=== PATIENT | female | born 2000 | race Hispanic/Latino ===

== ENCOUNTER 2021-10-20 11:11 | Emergency (ER) | payer OTHER, SELFPAY ==
--- NOTE | ~2021-10-20 | XR_ITS ---
XR forearm LT 2V 10/20/2021 11:50 INDICATION: Left arm pain PROCEDURE: 2 views left forearm COMPARISON: No prior studies for comparison. FINDINGS: Fracture, dislocation or subluxation is not identified. There is soft tissue swelling along the dorsal aspect of the forearm. No foreign bodies are identified. IMPRESSION: 1: NO ACUTE BONE OR JOINT ABNORMALITY IDENTIFIED. Reviewed, dictated and finalized at location L.
[2021-10-20 11:21] VITALS: BP 134/80; PULSE 77; RESP 16; TEMP 37.4; O2SAT 100
--- NOTE | 2021-10-20 11:36 | ED.EXTPRO ---
HPI - Extremity Problem General Chief complaint: Extremity Problem,Nontraumatic Stated complaint: left arm pain/swelling Time Seen by Provider: 10/20/21 11:36 Source: patient and RN notes reviewed Mode of arrival: ambulatory Limitations: no limitations History of Present Illness HPI Narrative: 21-year-old female presents to the [facility] with complaints of redness, swelling and bruising with discomfort to the left forearm since Monday, 4 days. Full range of motion of the elbow and wrist. Strong pc support specialist noted. Capillary refill under 2 seconds. Sensation intact in all 5 fingers. No open wounds. Related Data Allergies Allergy/AdvReac Type Severity Reaction Status Date / Time No Known Allergies Allergy Unverified 10/20/21 11:16 Review of Systems Review of Systems: All systems reviewed & are unremarkable except as noted in HPI and below Constitutional: Constitutional: Reports no additional constitutional complaints, Denies chills and Denies fever(s) Eyes: Eyes: Reports no additional eye complaints ENT: Reports system reviewed and no additional complaints, except as documented Cardiovascular: Cardiovascular: Reports no additional cardiovascular complaints Respiratory: Respiratory: Reports no additional respiratory complaints Gastrointestinal: Gastrointestinal: Reports no additional gastrointestinal complaints Musculoskeletal: Musculoskeletal: Reports as per HPI Integumentary/Breasts: Skin/Breast: Reports as per HPI Neurologic: Reports system reviewed and no additional complaints, except as documented Psychiatric: Psychiatric: Reports no additional psychiatric complaints Allergic/Immunologic: Allergic/Immunologic: Reports no additional allergic/immunologic complaints PMFSH Past Medical History Medical History (Updated 10/21/21 @ 08:22 by Renu Ramirez APRN) Patient denies medical problems Surgical History Surgical History (Updated 10/21/21 @ 08:21 by Renu Ramirez APRN) No pertinent past surgical history Social History Social History (Updated 10/21/21 @ 08:21 by Renu Ramirez APRN) Gender identity (if verbalized by the patient): Female Comments At the time of my signature, I reviewed and agree with the nursing past medical, surgical, social, and family history. There is no relevant family history pertinent to the patient complaint. Exam Const: General: healthy appearing, no acute distress and alert Nutritional Appearance: well nourished Orientation/consciousness: patient oriented x3 Limitations: no limitations HENMT: Head: normal to inspection Ears: external ears normal Eyes: General: appearance normal, both eyes and all related structures Pupils: Equal, round and reactive pupils present Neck: Neck: normal visual inspection, no lymphadenopathy and no meningeal signs Chest: Chest palpation & inspection: normal inspection of the chest Resp: Effort & Inspection: normal respiratory effort and no use of accessory muscles Auscultation: clear to auscultation bilaterally, no crackles, no rales, no rhonchi and no wheezes Cardio: Rate: regular rate Rhythm: regular rhythm GI: GI Palp: Yes Soft to palpation and No Tenderness to palpation present (GI) Back/Spine/Pelvis: Cervical Spine: normal cervical lordosis Thoracic/Lumbar Spine: thoracic and lumbar spine normal to inspection Skin: General skin exam: normal color Rashes: no rashes Wounds: no wounds Neuro: General: patient oriented x3, moves all extremities, no meningeal signs and no focal motor deficits Cranial nerves: Yes Equal, round and reactive pupils present Speech: normal speech Gait exam (Neuro): Normal gait present Extrem: General: normal to inspection, full ROM and capillary refill normal Right upper extremity: full ROM, normal capillary refill and elbow/forearm tenderness (Mid dorsal aspect), normal ROM, warmth (Mid dorsal aspect), ecchymosis (Mid volar aspect) and distal pulses intact Psych: Appearance: grossly normal
== END 2021-10-20 12:11 | disposition home or self-care (01) ==
PROVIDERS: Emergency Provider Nurse Practitioner; PCP Registered Nurse
DX: L03.114 Cellulitis of left upper limb (principal); S50.11XA Contusion of right forearm, initial encounter; X58.XXXA Exposure to other specified factors, initial encounter
CPT/HCPCS: 73090; 99213; G0463